=== PATIENT | female | born 1950 | race Caucasian/White ===

== ENCOUNTER 2021-03-10 08:57 | Outpatient (CLI) | payer MEDICARE, SELFPAY ==
--- NOTE | ~2021-03-10 | XR_ITS ---
EXAMINATION: XR shoulder LT min 2V EXAM DATE: 03/10/2021 09:34 INDICATION: M25.512 - Pain in left shoulder. TECHNIQUE: The following left shoulder projections obtained: frontal projection with internal rotatio n, frontal projection with external rotation, Grashey, and axillary (4+ views). Comparison is made to prior examination from 12/28/2016. FINDINGS: No evidence of left shoulder rotator cuff calcific tendinosis. Surgical changes of the acr omioclavicular joint. Anchors from rotator cuff repair. There is mild glenohumeral primary osteoarthr itis. Joint cervical fusion hardware. IMPRESSION: 1. Mild left glenohumeral osteoarthritis. 2. Surgical changes. Reviewed, dictated and finalized at location B.
== END 2021-03-10 08:58 ==
PROVIDERS: PCP Internal Medicine; Visit Provider Internal Medicine
DX: M25.512 Pain in left shoulder (principal); M19.012 Primary osteoarthritis, left shoulder; Z98.890 Other specified postprocedural states
CPT/HCPCS: 73030

== ENCOUNTER 2021-03-29 09:00 | Outpatient (CLI) | payer MEDICARE, SELFPAY ==
--- NOTE | ~2021-03-29 | MR_ITS ---
EXAMINATION: MR shoulder LT wo con DATE: 03/29/2021 11:09 INDICATION: Left shoulder pain TECHNIQUE: Magnetic resonance imaging (MRI) of the left shoulder was performed without intravenous co ntrast. Sequences included axial PD-weighted FS FSE, axial fluid sensitive FSE STIR, coronal oblique PD-weighted FS FSE, coronal oblique T2-weighted FS FSE, coronal fluid sensitive FSE STIR, sagittal PD -weighted FS FSE, and sagittal T1-weighted SE, sagittal fluid sensitive FSE STIR. COMPARISON: Left shoulder radiographs dated 03/10/2021 FINDINGS: Evaluation mild to moderately limited by motion artifact on multiple sequences. Coracoacromial arch: There is thinning of the acromion consistent with prior acromioplasty. There has also been resection of the lateral head of the left clavicle. Rotator cuff: There is a pair of suture anchor screws at the superior facet of the greater tuberosity consistent wi th prior rotator cuff repair. There is severe supraspinatus and moderate infraspinatus tendinopathy. There is attenuation of the distal conjoined portion of the tendon with partial-thickness articular s ided tear. The medial side of the articular sided tear margin is located approximately 2.5 cm medial to the apex of the humeral head and measures approximately 7 mm AP. No full-thickness tear identified . The teres minor tendon is normal. Moderate subscapularis tendinopathy. Mild partial-thickness tear involving the lateral margin of the lesser tuberosity footplate of the subscapularis tendon. Intrasub stance split tear situated between the portion of the tendon attached to the lesser tuberosity and th e bursal side of the tendon which remains attached to the intact transverse humeral ligament. The spl it tear propagates an from the lateral rim of the intertubercular groove additional 8 mm medially. Mi ld to moderate fatty atrophy of the supraspinatus and infraspinatus muscle bellies. Biceps tendon, glenoid labrum and glenohumeral cartilage: Severe tendinopathy and longitudinal split tearing of the intra-articular portion of the long head bi ceps tendon as well as extra-articular portion of the tendon which is subluxed across the medial rim of the intertubercular groove at the subscapularis tear defect. The more distal tendon appears normal . Mild glenohumeral osteoarthritis with partial thickness cartilage loss with smooth appearing chondr al surface at the cephalad third of the glenoid. Glenoid labrum appears grossly normal. Assessment of both the labrum and cartilage is however significantly limited by the motion artifact. Fluid: Small glenohumeral joint effusion. There is a small amount of fluid in the subacromial/subdeltoid bur sa consistent with mild to moderate bursitis. No loose osteochondral bodies. Bones: Bone alignment is normal. No fracture or pathologic marrow replacing process. IMPRESSION: 1. Severe supraspinatus and infraspinatus tendinopathy with change of prior rotator cuff repair at th e superior facet footplate of the supraspinatus tendon. Small residual/recurrent moderate severity ar ticular sided tear involving the posterior supraspinatus tendon contribution to the conjoined portion of the tendon. 2. Moderate subscapularis tendinopathy with small partial-thickness tear involving the lateral margin of the lesser tuberosity footplate allowing partial subluxation of the long head biceps tendon acros s the medial rim of the intertubercular groove. 3. Severe tendinopathy and longitudinal split tearing of the long head biceps tendon. 4. Small glenohumeral joint effusion. 5. Moderate subacromial/subdeltoid bursitis. Reviewed, dictated and finalized at location A.
== END 2021-03-29 09:01 ==
PROVIDERS: PCP Internal Medicine; Visit Provider Internal Medicine
DX: S46.112A Strain of muscle, fascia and tendon of long head of biceps, left arm, initial encounter (principal); M75.51 Bursitis of right shoulder
CPT/HCPCS: 73221

== ENCOUNTER 2023-06-13 15:34 | Emergency (ER) | payer OTHER, SELFPAY ==
--- NOTE | ~2023-06-13 | XR_ITS ---
EXAMINATION: XR knee RT min 4V DATE: 06/13/2023 15:54 INDICATION: Medial right knee pain post twisting injury TECHNIQUE: Anteroposterior, 2 oblique and crosstable lateral views of the right knee were obtained COMPARISON: None. FINDINGS: Alignment is normal. No fracture. Joint spaces appear normal on nonweightbearing imaging. Possible s mall right knee joint effusion without evident layering lipohemarthrosis. Soft tissues are unremarkab le. IMPRESSION: 1. Possible small right knee joint effusion but without evident acute osseous abnormality. Reviewed, dictated and finalized at location A. TING SPECIALIST IMPRESSION: 1. Possible small right knee joint effusion but without evident acute osseous a bnormality.
[2023-06-13 15:34] VITALS: BP 182/92; PULSE 87; RESP 17; TEMP 36.6; O2SAT 99
--- NOTE | 2023-06-13 15:50 | ED.LOWEXIN ---
HPI - Extremity Injury (Lower) General Chief Complaint: Extremity Injury, Lower Stated Complaint: right knee injury Time Seen by Provider: 06/13/23 15:42 Source: patient Mode of arrival: ambulatory Limitations: no limitations History of Present Illness HPI Narrative: patient is a 72-year-old female with a right knee injury at work 4 days ago. She has pain in the right knee medial aspect. She is here for evaluation. complaint: knee injury Onset (ago): day(s) (4) Injury: Right: knee Type of Injury: other ( Twisted knee) Place: work Severity: moderate Severity scale (1-10): 7 Relieving factors: immobilization Exacerbating factors: movement Context: other ( twisted right knee) Associated symptoms: swelling, able to partially bear weight and ambulatory Other symptoms: none Treatments prior to arrival: cold therapy and heart therapy Related Data Allergies Allergy/AdvReac Type Severity Reaction Status Date / Time tramadol Allergy Unknown difficulty Verified 06/13/23 16:08 breathing cefuroxime AdvReac Mild Ringing in Verified 06/13/23 16:08 ears and loose stools Review of Systems Review of Systems: All systems reviewed & are unremarkable except as noted in HPI and below Constitutional: Constitutional: Reports no additional constitutional complaints Eyes: Eyes: Reports no additional eye complaints ENT: Reports system reviewed and no additional complaints, except as documented Cardiovascular: Cardiovascular: Reports no additional cardiovascular complaints Respiratory: Respiratory: Reports no additional respiratory complaints Gastrointestinal: Gastrointestinal: Reports no additional gastrointestinal complaints Genitourinary: Genitourinary: Reports no additional female genitourinary complaints Musculoskeletal: Musculoskeletal: Reports no additional musculoskeletal complaints Integumentary/Breasts: Skin/Breast: Reports system reviewed and no additional complaints, except as docu Neurologic: Reports system reviewed and no additional complaints, except as documented Psychiatric: Psychiatric: Reports no additional psychiatric complaints Endocrine: Endocrine: Reports no additional endocrine complaints Hematologic/Lymphatic: Hematologic/Lymphatic: Reports no additional hematologic/lymphatic complaints Allergic/Immunologic: Allergic/Immunologic: Reports no additional allergic/immunologic complaints PMFSH Past Medical History Medical History Screening for breast cancer Screening for osteoporosis Surgical History Surgical History H/O spinal fusion History of carpal tunnel release History of hysterectomy History of knee replacement History of neck surgery History of revision of total knee arthroplasty History of rotator cuff surgery History of tubal ligation Family History Family History Father Family history of malignant neoplasm Mother Family history of atrial fibrillation Social History Social History Social History: Non Smoker Smoking status: Never smoker Second hand tobacco smoke exposure: Yes Alcohol intake: never Substance use: never Substance use type: does not use Lack of Transportation: No Lack of Food: Never True Current Housing: I Have Housing Concerned About Future Housing: No Difficulty Paying Gas/Electric Bills: No Difficulty Paying for Meds: No Education: High School Diploma/GED Difficulty w/ Childcare or Family Care: No Living arrangements: alone Occupation/Education: retired Gender identity (if verbalized by the patient): Female Sexual Orientation (if Verbalized by the Patient): Straight or Heterosexual Spiritual care concerns: Yes Agree to blood products: No Exam Const: General: healthy appearing Nutr
[2023-06-13 16:34] VITALS: BP 160/79; PULSE 67; RESP 18; TEMP 36.6; O2SAT 99
== END 2023-06-13 16:34 | disposition home or self-care (01) ==
PROVIDERS: Emergency Provider Emergency Medicine; PCP Family Medicine
DX: S83.91XA Sprain of unspecified site of right knee, initial encounter (principal); X50.0XXA Overexertion from strenuous movement or load, initial encounter; Y99.0 Civilian activity done for income or pay
CPT/HCPCS: 73564; 99283

== ENCOUNTER 2023-06-26 07:54 | Outpatient (CLI) | payer OTHER, SELFPAY ==
--- NOTE | ~2023-06-26 | MR_ITS ---
MRI of the right knee Clinical history: Pain Technique: Coronal proton density and proton density-weighted images, sagittal proton-density and T2 fat-sat images, and axial proton-density fat-saturated images were acquired. Findings: Anterior and posterior cruciate ligaments are intact. Medial collateral ligament and the la teral collateral ligament complex are intact. Popliteus tendon is intact. There is a large radial tear at the posterior root of the medial meniscus. There is partial extrusion of the body segment into the medial gutter. Lateral meniscus is intact, without evidence of tear. There is subchondral insufficiency fracture at the medial tibial plateau region with extensive surrou nding marrow edema. There is moderate to high-grade chondral malacia with medial joint line. Lateral compartment cartilage is intact. There is high-grade chondral malacia of the medial patellar facet. T here is moderate chondral malacia the femoral trochlea. Extensor mechanism is intact. There is minimal joint effusion. No Medrano's cyst. Impression: Large radial tear of the posterior root of the medial meniscus. Subchondral insufficiency fracture of the medial tibial plateau with extensive surrounding marrow mara ma. Chondromalacia in the knee, as detailed above. Reviewed, dictated and finalized at location . LSCOPE OPERATOR Impression: Large radial tear of the posterior root of the medial meniscus. Subchondral insufficiency fracture of the medial tibial plateau with extensive surrounding marrow edema. Chondromalacia in the knee, as detailed above.
== END 2023-06-26 07:55 ==
PROVIDERS: PCP Nurse Practitioner Family; Visit Provider Nurse Practitioner Family
DX: S83.241A Other tear of medial meniscus, current injury, right knee, initial encounter (principal); M94.261 Chondromalacia, right knee
CPT/HCPCS: 73721

== ENCOUNTER 2024-03-19 08:51 | Outpatient (CLI) | payer OTHER, SELFPAY ==
--- NOTE | ~2024-03-19 | XR_ITS ---
EXAMINATION: XR knee RT min 4V DATE: 03/19/2024 09:17 INDICATION: Medial left knee pain post fall TECHNIQUE: Anteroposterior, 2 oblique and crosstable lateral views of the right knee were obtained COMPARISON: 06/13/2023 FINDINGS: Alignment is normal. No fracture. Interval progression of now severe joint space narrowing in the me dial compartment with prominent subarticular lucency at the medial tibial plateau. There is been inte rval progression of subarticular likely insufficiency fracture with progressive depression of the cam tral articular surface of the medial tibial plateau when compared with MRI dated 06/26/2023. Unchanged mild osteoarthritis at the patellofemoral compartment. No joint effusion/layering lipohemarthrosis. Soft tissues are unremarkable. IMPRESSION: 1. 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 2. Interval progression in now severe secondary osteoarthritis in the medial compartment. Reviewed, dictated and finalized at location A. IMPRESSION: 1. 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 2. Interval progression in now severe secondary osteoarthritis in the medial co mpartment.
== END 2024-03-19 08:52 | disposition home or self-care (01) ==
PROVIDERS: Visit Provider Nurse Practitioner Family
DX: S82.141D Displaced bicondylar fracture of right tibia, subsequent encounter for closed fracture with routine healing (principal); X58.XXXD Exposure to other specified factors, subsequent encounter; M17.5 Other unilateral secondary osteoarthritis of knee
CPT/HCPCS: 73564

== ENCOUNTER 2024-06-30 15:05 | Outpatient (CLI) | payer MEDICARE, SELFPAY ==
--- NOTE | ~2024-06-30 | CT_ITS ---
EXAMINATION: CT knee RT wo con DATE: 06/30/2024 15:25 INDICATION: Right knee pain. TECHNIQUE: Computed tomography (CT) of the right knee was performed without intravenous contrast. Aut omated exposure control and iterative reconstruction technique were employed. The dose-length product was 626.12 mGy-cm. COMPARISON: Right knee radiographs 06/24/2024, 03/19/24, right knee MRI 06/26/23 FINDINGS: There is varus angulation at the knee. There is a fracture of medial tibial plateau with up to 6 mm depression of the articular surface. There is severe osteoarthritis of medial compartment an d mild osteoarthritis of the lateral and patellofemoral compartments. There is a small knee joint eff usion. IMPRESSION: 1. Medial plateau fracture with worsened depression of the articular surface from 03/19/24. 2. Severe right knee osteoarthritis. 3. Small knee joint effusion. Reviewed, dictated and finalized at location A. STERED MAIL CLERK IMPRESSION: 1. Medial plateau fracture with worsened depression of the articular surface fr om 03/19/24. 2. Severe right knee osteoarthritis. 3. Small knee joint effusion.
== END 2024-06-30 15:06 | disposition home or self-care (01) ==
PROVIDERS: PCP Nurse Practitioner Family; Visit Provider Orthopaedic Surgery
DX: S82.141A Displaced bicondylar fracture of right tibia, initial encounter for closed fracture (principal); X58.XXXA Exposure to other specified factors, initial encounter; M17.11 Unilateral primary osteoarthritis, right knee; M25.461 Effusion, right knee
CPT/HCPCS: 73700

== ENCOUNTER 2024-07-09 14:49 | Outpatient (CLI) | payer MEDICARE, SELFPAY ==
--- NOTE | ~2024-07-09 | DEXA_ITS ---
Bone Density Report Name: DAVID ELIZONDO Age: 74 Sex: Female Ethnicity: White Date of : 1950 Indication: postmenopausal; screening for osteoporosis; height loss; prior fracture; hysterectomy; Referring Provider: MARIA G HATFIELD Study: Bone densitometry was performed. Exam Date: July 09, 2024 Accession number: [id number] Bone Density: Region BMD T-score Z-score Classification AP Spine(L1-L4) 0.867 -1.6 0.6 Osteopenia Femoral Neck (Right) 0.676 -1.6 0.4 Osteopenia Total Hip (Right) 0.805 -1.1 0.5 Osteopenia World Health Organization criteria for BMD impression classify patients as: Normal (T-score at or above -1.0), Osteopenia (T-score between -1.0 and -2.5), or Osteoporosis (T-score at or below -2.5). 10-year Fracture Risk(1): Major Osteoporotic Fracture 16% Hip Fracture 2.4% Reported Risk Factors: [place] (), Neck BMD=0.676, BMI=30.7, previous fracture (1) FRAX(R) Version 3.08. Fracture probability calculated for an untreated patient. Fracture probability may be lower if the patient has received treatment. Clinical Information Provided by Patient: Has had a low trauma fracture Has the following medical conditions: Hysterectomy Patient maximum height was 62 Menopause Age: 47 No regular weight bearing exercise Drinks caffeinated beverages Onset of menses at age 14 Number of children 3 Impression: The patient has low bone mass, based on the Total Spine T-score. The patient has an estimated ten-year risk of hip fracture of 2.4% and an estimated ten-year risk of major fracture of 16%, based on the WHO FRAX algorithm. The patient has risk factors, including: previous fracture. Discussion: BONE DENSITY IS LOW AT ONE OR MORE SKELETAL SITES. This patient's lowest T-score is low at one or more skeletal sites. It meets the World Health Organization's (WHO) criteria for ?low bone mass? (T-score between -1.0 and -2.5). The patient's 10-year risk of fracture as calculated by FRAX is less than the threshold where pharmacological therapy is recommended by the National Osteoporosis Foundation (NOF). However, all treatment decisions require clinical judgment and consideration of individual patient factors, including patient preferences, comorbidities, previous drug use, risk factors not captured in the FRAX model (e.g., frailty, falls, vitamin D deficiency, increased bone turnover, interval significant decline in bone density) and possible under or overestimation of fracture risk by FRAX. The patient should follow a healthful lifestyle (good nutrition with adequate calcium and vitamin D, and appropriate weight-bearing exercise). Follow-Up: Consider repeating this study in 2 to 3 years to reassess this patient's status, or sooner if there is some new clinical indication. Reported by: SOFIA on 07/09/2024 3:39:00 PM. Reviewed, dictated and finalized at location A. [facility]
--- OUTSIDE RECORDS SUMMARY | 2024-07-10 05:50 | XMS_ITS | Referral Summary ---
Author Organization [facility] Address [address] [place] [address] Care Team Providers Care Chief Nursing Officer Name Role Phone Marquis Prater MD Primary Care Provider [phone] Allergies Active Allergy Reactions Criticality Noted Date Comments Tramadol Anaphylaxis High 09/17/2018 Medications lisinopril (PRINIVIL,ZESTR IL) 10 mg tabletIndicatio ns:hypertension Take 1 tablet (10 mg total) by mouth every morning 0 05/14/2018 Active pregabalin (LYRICA) 75 mg capsuleIndicati ons:neuropathy Take 1 capsule (75 mg total) by mouth every morning Active HYDROcodone-cathie taminophen (NORCO) 5-325 mg per tabletIndicatio ns:Pain Take 1 tablet by mouth as needed for pain Active pravastatin (PRAVACHOL) 10 mg tabletIndicatio ns:hyperlipidem ia Take 1 tablet (10 mg total) by mouth every morning 1 02/25/2018 Active aspirin 81 mg enteric coated tabletIndicatio ns:prevention of thrombosis Take 1 tablet (81 mg total) by mouth every morning Active meloxicam (MOBIC) 15 mg tabletIndicatio ns:Osteoarthrit is Take 1 tablet (15 mg total) by mouth every morning 07/20/2023 Active ondansetron (ZOFRAN) 4 mg tablet Take 1 tablet (4 mg total) by mouth every 8 (eight) hours as needed for nausea 12 tablet 10/11/2023 Active docusate sodium (COLACE) 100 mg capsuleIndicati ons:constipatio n Take 1 capsule (100 mg total) by mouth 2 (two) times a day 14 capsule 10/11/2023 Active acetaminophen (TYLENOL) 500 mg tablet Take 1 tablet (500 mg total) by mouth every 6 (six) hours as needed for pain 30 tablet 10/12/2023 Active Active Problems Problem Noted Date Diagnosed Date Acute medial meniscus tear of right knee 024 Degenerative disc disease, cervical 10/30/2018 Cervical radiculopathy 10/30/2018 Foraminal stenosis of cervical region-Lt C3-4 an d C5-6 10/22/2018 Chronic neck and back pain 10/08/2018 Cervical post-laminectomy syndrome-S/P C3-C7 ACI F 10/08/2018 Surgical follow-up care 10/23/2013 Knee pain 03/30/2013 Social History Tobacco Use Types Packs/Day Years Used Date Smoking Tobacco: Never Smokeless Tobacco: Never Alcohol Use Standard Drinks/Week Comments Never 0 (1 standard drink = 0.6 oz pur e alcohol) AUDIT-C Answer Date Recorded Q1: How often do you have a drink containing alcohol? Never 10/11/2023 Q2: How many drinks containi ng alcohol do you have on a typical day when you are drinking? Patient does not drink Q3: How often do you have si x or more drinks on one occasion? Never 10/11/2023 PHQ-2 Answer Date Recorded PHQ-2 Score 2 02/05/2019 Personal Safety Answer Date Recorded Have you ever been in or are you currently in a harmful physical or emotional relationship or is someone making you feel afraid or unsafe? 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 Gender Identity Not on file Sexual Orientation Not on file Occupation Industry Job Start Date Job End Date retired Not on file Not on file Not on file Last Filed Vital Signs Vital Sign Reading Time Taken Comments Blood Pressure 117/59 10/11/2023 9:10 AM CDT Pulse 55 10/11/2023 9:10 AM CDT Temperature 36 ??C (96.8 ??F) 10/11/2023 8:36 AM CDT Respiratory Rate 12 10/11/2023 9:10 AM CDT Oxygen Saturation 98% 10/11/2023 9:10 AM CDT Inhaled Oxygen Concentration - - Weight 68 kg (150 lb) 10/11/2023 6:37 AM CDT Height 154.9 cm (5' 1 ) 10/11/2023 6:37 AM CDT Body Mass Index 28.34 10/11/2023 6:37 AM CDT Plan of Treatment Not on file Goals Goal Patient Goal Type Associated Problems Recent Progress Patient-Stated? Author [facility] Dee Abraham RN Note: Patient will establish a comfort-function goal and identify the pain level that will allow the patient to perform desired activities and achieve an acceptable quality of life. Insurance [facility] MEDICARE SOLUTIONS MEDICARE [facility] WORKERS COMPENSATION GENERIC WORKERS COMPENSATION GENERIC WORKERS COMPENSATION GENERIC Care Teams Chief Nursing Officer Relationship Specialty Start Date End Date Marquis Prater MD [address] [place] [address] PCP - General Family Practice 06/01/24
--- OUTSIDE RECORDS SUMMARY | 2024-07-10 05:50 | XMS_ITS | Clinical Summary ---
Author Organization [facility] Address [address] [place] [address] Care Team Providers Care Radiation Protection Technician Name Role Phone Marquis Prater MD Primary Care Provider [phone] [phone] Allergies Active Allergy Reactions Criticality Noted Date [...] Surgical follow-up care 10/23/2013 Knee pain 03/30/2013 Surgical History Surgery Date Site/Laterality Comments KNEE SURGERY KNEE ARTHROSCOPY JOINT REPLACEMENT Left knees FEMUR FRACTURE SURGERY 2014 - 06/16/2015 Left COLONOSCOPY several ABDOMINAL HYSTERECTOMY CARPAL TUNNEL RELEASE 1989 - 06/16/1990 Bilateral ROTATOR CUFF REPAIR Bilateral Medical History Medical History Date Comments Arthritis Hypertension treated by pcp High cholesterol Neck pain Mid back pain Low back pain Family History Medical History Relation Name Comments Arthritis Father Heart disease Father Hypertension Father Heart disease Mother Relation Name Status Comments Father Mother Social History Tobacco Use Types Packs/Day Years [...] on file 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 Gender Identity Not on file Sexual Orientation Not on file Occupation Industry Job Start Date Job End Date retired Not on file Not on file Not on file Obstetrics History Last Filed Vital Signs Vital Sign Reading [...] 10/11/2023 6:37 AM CDT Plan of Treatment Health Maintenance Due Date Last Done Comments Breast Cancer Screening-Mammogram 1950 Colon Cancer Screening-Colonoscopy 1950 Hepatitis C Screening 1950 Osteoporosis Screening-Bone Density Scan 1950 DTaP/Tdap/Td Vaccine (1 - Tdap) 1963 Hepatitis B Screening 1970 Zoster Vaccine (1 of 2) 2002 Pneumococcal vaccine 65+ (1 of 1 - PCV) 2017 Well Visit 65+ 2017 Depression Screening 10/09/2019 10/08/2018, 10/09/19 19 Covid-19 Vaccine (3 - 2023- season) 02/16/202402/2021, 08/24/2020 Influenza Vaccine (#1) 2024 Fall Risk Assessment 10/10/2024 10/11/2023 Goals Goal Patient Goal Type Associated Problems Recent Progress Patient-Stated? Author [facility] No Dee Mueller, RN Note: Patient will establish a comfort-function goal and identify the pain level that will allow the patient to perform desired activities and achieve an acceptable quality of life. Insurance [facility] MEDICARE SOLUTIONS MEDICARE [facility] WORKERS COMPENSATION GENERIC WORKERS COMPENSATION GENERIC WORKERS COMPENSATION GENERIC Care Teams Radiation Protection Technician Relationship Specialty Start Date End Date Marquis Prater MD [address] [place], [place] [id number] PCP - General Family Practice 06/01/24
== END 2024-07-09 14:50 | disposition home or self-care (01) ==
LOC: ANHIMG 14:51
PROVIDERS: PCP Nurse Practitioner Family; Visit Provider Nurse Practitioner Family
DX: M85.89 Other specified disorders of bone density and structure, multiple sites (principal); Z78.0 Asymptomatic menopausal state; Z13.820 Encounter for screening for osteoporosis
CPT/HCPCS: 77080

== ENCOUNTER 2024-07-09 16:19 | Outpatient (CLI) | payer MEDICARE, SELFPAY ==
[2024-07-09 17:31] LABS: Vitamin D 25 Hydroxy 44.4 ng/mL
== END 2024-07-09 16:20 | disposition home or self-care (01) ==
PROVIDERS: PCP Nurse Practitioner Family; Visit Provider Orthopaedic Surgery
DX: E55.9 Vitamin D deficiency, unspecified (principal)
CPT/HCPCS: 36415; 82306

== ENCOUNTER 2024-09-17 09:24 | Outpatient (CLI) | payer MEDICARE, SELFPAY ==
--- OUTSIDE RECORDS SUMMARY | 2024-09-17 09:53 | XMS_ITS | Referral Summary ---
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 Insurance [facility] HMO/PPO Address: [address] [address] [place] [address] UHC MEDICARE ADV[address]AGE [facility] MEDICARE Address: [address] [address] [place] [address] MEDICARE [facility] WORKERS COMPENSATION GENERIC WORKERS COMPENSATION GENERIC WORKERS COMPENSATION GENERIC Care Teams Reuse Technician Relationship Specialty Start Date End Date Marquis Prater MD [address] [place] [address] PCP - General Family Practice 06/01/24
--- OUTSIDE RECORDS SUMMARY | 2024-09-17 09:53 | XMS_ITS | Clinical Summary ---
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 Author [facility] No Dee Mueller, RN Note: Patient will establish a comfort-function goal and identify the pain level that will allow the patient to perform desired activities and achieve an acceptable quality of life. Insurance [facility] MEDICARE ADVANTAGE MEDICARE [facility] WORKERS COMPENSATION GENERIC WORKERS COMPENSATION GENERIC WORKERS COMPENSATION GENERIC Care Teams Jelly Filter Tender Relationship Specialty Start Date End Date Marquis Prater MD [address] [place], [place] [id number] PCP - General Family Practice 06/01/24
--- NOTE | 2024-09-17 10:17 | ECG_ITS ---
Test Date: 2024-09-17 10:40:59 Measurements Intervals Crawford Rate: 72 P: 12 UT: 159 QRS: -3 QRSD: 91 T: 2 QT: 338 QTc: 371 Interpretive Statements SINUS RHYTHM WITH SINUS ARRHYTHMIA POOR R WAVE PROGRESSION BORDERLINE T WAVE ABNORMALITY- ANTEROLAT/INF LEADS BASELINE ARTIFACT- I, II, III, AVR, AVL, AVF, V1-V6 BORDERLINE ECG No previous ECG available for comparison Electronically Signed On 09-17-2024 10:48:47 CDT by Behzad Jacinto D.O.
[2024-09-17 10:58] LABS: Basophils Percent Auto 0.7 % (0.2-1.2); Eosinophils Absolute Auto 0.1 K/mm3 (0-0.3); Eosinophils Percent Auto 2.2 % (0-4.4); Hematocrit 37.7 % (37.0-47.0); Hemoglobin 11.6 g/dL (12.0-15.0); Immature Granulocyte Absolute 0.01 K/mm3 (0.00-0.031); Immature Granulocyte Percent A 0.2 % (0-0.5); Lymphocytes Absolute Auto 1.23 K/mm3 (0.9-3.2); Lymphocytes Percent Auto 22.2 % (18.3-44.2); Mean Corpuscular HGB Conc 30.8 g/dl (32-36); Mean Corpuscular Volume 91.1 fl (80-100); Mean Platelet Volume 11.8 fl (7.4-10.4); Monocytes Absolute Auto 0.3 K/mm3 (0.1-0.6); Monocytes Percent Auto 5.1 % (2.6-8.5); Neutrophils Absolute Auto 3.9 K/mm3 (1.3-6.7); Neutrophils Percent Auto 69.6 % (45.5-73.1); Platelet Count Result 245 k/mm3 (150-375); Red Blood Count 4.14 M/mm3 (4.2-5.4); Red Cell Distribution Width 13.9 % (11.5-14.5); White Blood Count 5.5 K/mm3 (4.5-10.0)
[2024-09-17 11:12] LABS: Anion Gap 10 mmol/L (4-12); Blood Urea Nitrogen 10 mg/dL (7-17); Calcium 9.3 mg/dL (8.4-10.2); Carbon Dioxide 30 mmol/L (22-30); Chloride 102 mmol/L (98-107); Estimated Glomerular Filt Rate 56; Glucose 105 mg/dL (65-110); Potassium 4.3 mmol/L (3.4-5.0); Sodium 142 mmol/L (137-145)
[2024-09-17 11:41] LABS: Hemoglobin A1C 5.4 % (<5.7)
[2024-09-17 12:25] LABS: Urine Cotinine NEGATIVE
[2024-09-17 12:42] LABS: Albumin Level 4.5 g/dL (3.5-5.1)
== END 2024-09-17 09:25 | disposition home or self-care (01) ==
LOC: ANHSURGERY 09:30
PROVIDERS: PCP Nurse Practitioner Family; Visit Provider Orthopaedic Surgery
DX: Z01.818 Encounter for other preprocedural examination (principal); M17.11 Unilateral primary osteoarthritis, right knee; R94.31 Abnormal electrocardiogram [ECG] [EKG]
CPT/HCPCS: 80048; 80307; 82040; 83036; 85025; 87081; 93005

== ENCOUNTER 2024-10-08 01:07 | Day surgery (SDC) | payer MEDICARE, SELFPAY ==
--- NOTE | 2024-09-17 09:32 | PC.NURSE ---
Report to the Outpatient Waiting Room, entrance under the green pavilion located off [facility], at time ___6:00am____ on date ___10/08/24____. Planned Procedure Time: ___7:30am .? Time changes happen often and if your time is changed the preop area will call you the afternoon before. - You and your visitor will be asked to self-screen and do not enter if you have any COVID symptoms. Please call surgeon if you need to reschedule. - A mask is optional within the hospital at this time. Patients may have clear liquids (water, carbonated beverages, clear teas, apple juice) until 3 hours prior to surgery (4:30AM) with a maximum of 20 ounces. - No food from midnight until time of surgery and no smoking, or chewing tobacco (or any form of nicotine). No chewing gum, candy or mints. Take only the following medications with a SIP of water on the morning of surgery: ___HYDROCODONE, PREGABALIN NEEDED FOR PAIN DO NOT STOP ANY OF YOUR OTHER PRESCRIPTION MEDICATIONS PRIOR TO SURGERY EXCEPT THE FOLLOWING Hold all vitamins and supplements for 3 days per anesthesiologist. Medications to discontinue per physician HOLD MELOXICAM(NSAIDS) 7 DAYS PRE-OP PER DR ALLAN Date to take last dose 09/30/24 Please no make-up, nail portuguese, hairspray, perfume, deodorant, or body powder the day of surgery.? No jewelry (including any body piercings) or valuables the day of surgery, leave them at home.? Please take a shower or bath the night before, or the morning of, surgery with an antibacterial soap.? Wear comfortable, loose fitting clothing.? - Jewelry must be removed prior to entering the operating room.? Rings and piercings that are not removed may be cut off. - The hospital will not accept responsibility for valuables.? - Please leave all valuables, including medications, at home the day of surgery. If you are going home after surgery, a licensed set key driver must drive you home.? - NO public transportation without another adult if you receive anesthesia. - We recommend that an adult stay with you for 24 hours following discharge. - We also recommend that you do not drive, make important decision, drink alcoholic beverages, or take any drugs that were not prescribed by your health care provider for at least 24 hours after your discharge time. Follow any additional instructions given to you from your surgeon. Telephone instructions given to PATIENT and asked if any additional questions and then verbalized understanding. Patient advised to call surgeon office or pre surgery nurse liaison [phone] if any additional questions.
[2024-09-17 09:44] VITALS: BP 144/62; PULSE 77; RESP 16; TEMP 36.7; O2SAT 100; BMI 33.2
--- NOTE | 2024-10-07 12:31 | P.HP_ITS ---
H&P: HPI History of Present Illness Date/Time: 10/07/24 12:31 Chief Complaint: Right knee DJD Narrative: 74-year-old female who presents today for a right total knee arthroplasty. Patient has been having progressively worsening symptoms in the knee for over a year. At this point she has advanced medial compartment osteoarthritis. She is having some impaction type fracture of the medial tibial plateau. Patient has been taking meloxicam 15 mg daily. She is also needing hydrocodone 10 mg on as- needed basis for her pain. Patient states her pain is severe on a daily basis. She would like to proceed at this point with total knee arthroplasty. Review of Systems Review of Systems: All systems reviewed & are unremarkable except as noted in HPI and below PMFSH Past Medical History Medical History Screening for breast cancer Screening for osteoporosis Surgical History Surgical History H/O spinal fusion History of rotator cuff surgery History of revision of total knee arthroplasty History of knee replacement History of hysterectomy History of carpal tunnel release History of neck surgery History of tubal ligation Family History Family History Father Family history of malignant neoplasm Mother Family history of atrial fibrillation Other History of atrial fibrillation Social History Social History (Updated 07/08/24 @ 11:22 by Antoinette Pringle CMA) Social History: Non Smoker Smoking status: Never smoker Second hand tobacco smoke exposure: Yes Alcohol intake: never Substance use: never Substance use type: does not use Do You Feel Safe in your Home?: Yes Lack of Transportation: No Lack of Food: Never True Current Housing: I Have Housing Concerned About Future Housing: No Difficulty Paying Gas/Electric Bills: No Difficulty Paying for Meds: No Currently Unemployed: No Education: Associate Degree Difficulty w/ Childcare or Family Care: No Living arrangements: with family Additional living arrangements comments: [employer] Occupation/Education: retired Gender identity (if verbalized by the patient): Female Sexual Orientation (if Verbalized by the Patient): Straight or Heterosexual Spiritual care concerns: No Agree to blood products: No Meds Home Medications and Allergies Home Medications ?Medication ?Instructions ?Recorded ?Confirmed ?Type lisinopril 10 mg tablet See Rx Instructions .Route 06/03/24 09/21/24 Rx .COMPLEX #90 tabs pravastatin 10 mg tablet See Rx Instructions .Route 06/03/24 09/21/24 Rx .COMPLEX #90 tabs pregabalin 75 mg capsule (Lyrica) 75 mg PO BID #180 caps 06/03/24 09/21/24 Rx hydrocodone 10 mg-acetaminophen 0.5 tablet PO Q6H PRN pain #60 tabs 09/30/24 Rx 325 mg tablet meloxicam 15 mg tablet See Rx Instructions .Route 09/30/24 Rx .COMPLEX #30 tabs Allergies Allergy/AdvReac Type Severity Reaction Status Date / Time cefuroxime AdvReac Mild Ringing in Verified 09/21/24 12:08 ears and loose stools tramadol AdvReac Unknown difficulty Verified 09/21/24 12:08 breathing Exam Narrative: 74-year-old female alert pleasant. She is 4 ft 11 and 156 lb BMI is 30.5. Range of motion right knee is from 0-125 degrees. Moderate tenderness over the medial joint line to palpation. She has moderate medial pseudolaxity. No obvious effusion. He has no increased swelling in either lower extremity. 2+ dorsalis pedis pulse palpable. Hip range of motion is full without discomfort, negative Stinchfield maneuver. She has normal quad strength. No numbness or tingling in the right lower extremity Resp: Auscultation: clear to auscultation bilaterally Cardio: Rate: regular rate Rhythm: regular rhythm Assessment and Plan Assessment and plan (1) Right knee DJD: Code(s): M17.11 - Unilateral primary osteoarthritis, right knee Status: Acute Assessment and Plan: 74-year-old female who has advanced medial compartment osteoarthritis the right knee. She has had impaction fractures of medial tibial plateau. This point she is having severe pain on a daily basis and feels she would rather proceed with total knee arthroplasty at this point. Surgical procedures well as risks and complications were discussed in detail questions were answered and we will proceed. Patient has seen her primary care doctor and has been cleared for surgery. She will stop her baby aspirin as well as her meloxicam 1 week prior to surgery. Patient's nasal swab was negative. Hemoglobin 11.6 and platelets 248. Chem panel her creatinine was 0.98 GFR was 56. Rest of Chem panel was within normal limits.
[2024-10-08] VITALS (15 sets, daily range): BP systolic 109–141; BP diastolic 49–77; PULSE 68–84; RESP 14–20; TEMP 35.9–37.2; O2SAT 94–100
--- NOTE | ~2024-10-08 | XR_ITS ---
Right Knee Technique: Portable AP and crosstable lateral views Clinical History: Status post TKR Findings: Patient is status post total knee replacement. Orthopedic hardware alignment appears anatom ic. No hardware complication is evident. Subcutaneous emphysema and swelling is likely postoperative in nature. No acute osseous fracture is seen. Impression: Status post total knee replacement, without evidence of hardware complication. Reviewed, dictated and finalized at location . Impression: Status post total knee replacement, without evidence of hardware complication.
--- OUTSIDE RECORDS SUMMARY | 2024-10-08 01:10 | XMS_ITS | Referral Summary ---
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 Insurance [facility] H[facility]/PPO Address: [address] [address] [place] [address] UHC MEDICARE ADVANT[facility]IC[facility] Address: [address] [address] [place] [address] MEDICARE [facility] WORKERS COMPENSATION GENERIC WORKERS COMPENSATION GENERIC WORKERS COMPENSATION GENERIC Care Teams Peanut Blancher Relationship Specialty Start Date End Date Marquis Prater MD [address] [place] [address] PCP - General Family Practice 06/01/24
--- OUTSIDE RECORDS SUMMARY | 2024-10-08 01:10 | XMS_ITS | Clinical Summary ---
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 Insurance [facility] MEDICARE ADVANTAGE MEDICARE [facility] COMPENSATION GENERIC WORKERS COMPENSATION GENERIC WORKERS COMPENSATION GENERIC Care Teams Hot Dip Tinning Supervisor Relationship Specialty Start Date End Date Marquis Prater MD [address] [place], [place] [id number] PCP - General Family Practice 06/01/24
--- NOTE | 2024-10-08 06:45 | WPDANESEPPF ---
Anes - Initial Pre Proc Eval Procedure: Operation Date: 10/08/24 07:30 Proposed Procedures p Right Total Knee Arthroplasty - Richard Hunt MD Date/Time: 10/08/24 06:45 Surgeon: Richard Hunt MD Pre Op Diagnosis: right knee OA Patient Data Age: 74 Gender: F Height: 1.45 m Weight: 69.7 kg Last Vital Signs Temp 36.7 C 09/17/24 09:44 Pulse 77 09/17/24 09:44 Resp 16 09/17/24 09:44 BP 144/62 H 09/17/24 09:44 Pulse Ox 100 09/17/24 09:44 O2 Del Method Room Air 09/17/24 09:44 Allergies Allergy/AdvReac Type Severity Reaction Status Date / Time cefuroxime AdvReac Mild Ringing in Verified 09/21/24 12:08 ears and loose stools tramadol AdvReac Unknown difficulty Verified 09/21/24 12:08 breathing Home Medications ?Medication ?Instructions ?Recorded ?Confirmed ?Type lisinopril 10 mg tablet See Rx Instructions .Route 06/03/24 09/21/24 Rx .COMPLEX #90 tabs pravastatin 10 mg tablet See Rx Instructions .Route 06/03/24 09/21/24 Rx .COMPLEX #90 tabs pregabalin 75 mg capsule (Lyrica) 75 mg PO BID #180 caps 06/03/24 09/21/24 Rx hydrocodone 10 mg-acetaminophen 0.5 tablet PO Q6H PRN pain #60 tabs 09/30/24 Rx 325 mg tablet meloxicam 15 mg tablet See Rx Instructions .Route 09/30/24 Rx .COMPLEX #30 tabs Laboratory Tests 10/08/24 06:32 Blood Type Pending Antibody Screen Pending Patient hx anesthesia problems: none Family hx anesthesia problems: none Results Review: All pre-operative results and documents have been reviewed as part of the pre-operative evaluation. [facility] Past Medical History Medical History Screening for breast cancer Screening for osteoporosis Surgical History Surgical History H/O spinal fusion History of rotator cuff surgery History of revision of total knee arthroplasty History of knee replacement History of hysterectomy History of carpal tunnel release History of neck surgery History of tubal ligation Family History Family History Father Family history of malignant neoplasm Mother Family history of atrial fibrillation Other History of atrial fibrillation Social History Social History Social History: Non Smoker Smoking status: Never smoker Second hand tobacco smoke exposure: Yes Alcohol intake: never Substance use: never Substance use type: does not use Do You Feel Safe in your Home?: Yes Lack of Transportation: No Lack of Food: Never True Current Housing: I Have Housing Concerned About Future Housing: No Difficulty Paying Gas/Electric Bills: No Difficulty Paying for Meds: No Currently Unemployed: No Education: Associate Degree Difficulty w/ Childcare or Family Care: No Living arrangements: alone Additional living arrangements comments: [employer] Occupation/Education: retired Gender identity (if verbalized by the patient): Female Sexual Orientation (if Verbalized by the Patient): Straight or Heterosexual Spiritual care concerns: Yes Agree to blood products: No Anes - Eval Final PreProcedure Day of Procedure 10/08/24 06:45 Patient weight: obese Heart: regular rate and rhythm Lungs: clear to auscultation Airway: Mallampati scale class II and special considerations poor dentition Neurological: alert and oriented Last oral intake: >/= 8 hours ASA classification: III Emergent: no Anesthetic plan: proceed Anesthesia type and monitoring: general ETT and standard monitoring Results Review: All pre-operative results and documents have been reviewed as part of the pre-operative evaluation. Informed Consent: The patient's anesthetic plan and its attendant risks and benefits were discussed with the patient/family/POA. Questions were solicited and answers provided to the satisfaction of the patient/family/POA.
[2024-10-08] MEDS: VANCOMYCIN 1,000 MG/NS 250 ML 1,000 MG/250 ML BAG 250 MG IVPB ×2 (07:00→19:34)
[2024-10-08] MEDS: LACTATED RINGERS 1,000 ML 30 ML IV CONT ×2 (07:00→11:20)
[2024-10-08] MEDS: ACETAMINOPHEN 500 MG TABLET 1000 MG PO (07:00)
[2024-10-08] MEDS: TRANEXAMIC ACID 1,000MG/ISO100 1,000 MG/100 ML BAG 200 MG IVPB (07:00)
--- NOTE | 2024-10-08 07:15 | WPDHPUPDATE1 ---
History and Physical Update Update Date/Time: 10/08/24 07:15 History and Physical has been reviewed, including an updated exam of the patient. There are NO changes in the patient's condition. Risks, benefits, and alternatives have been discussed and questions answered. Patient agrees to proceed with procedure.
[2024-10-08] MEDS: SODIUM CHLORIDE 0.9% IV 38.7 ML, ROPivacaine HCL 1% 200 MG, KETOROLAC INJ (*BKC) 15 MG,... INFILTRATE (07:35)
[2024-10-08] MEDS: ceFAZolin 2 GM/D5W 50 ML 2 GM/50 ML BAG IVPB ×3 (07:35→22:08)
[2024-10-08] MEDS: ceFAZolin SODIUM 1 GM VIAL 3 GM (07:35)
[2024-10-08] MEDS: GENTAMICIN BONE CEMENT REFOBACIN 1 EACH TOPICAL (10:05)
[2024-10-08] MEDS: TRANEXAMIC ACID 1,000 MG/10 ML AMPUL 1000 MG IV PUSH (10:20)
[2024-10-08] MEDS: ceFAZolin SODIUM 1 GM VIAL 2 GM IV PUSH (10:20)
[2024-10-08] MEDS: KETOROLAC 15 MG/ML VIAL (*BKC) 7.5 MG IV PUSH ×2 (10:43→17:22)
--- NOTE | 2024-10-08 11:31 | PM.OP ---
Procedure Note - Brief Procedure Note - Brief Date of procedure: 10/08/24 right knee OA Procedure performed: Right total knee arthroplasty Surgeon: HAY Acevedo Findings: 74 year old who underwent right total knee arthroplasty on 10/08. I was involved in the procedure including positioning the patient on the OR table in 1st assisting through the time surgery. Total time spent was 3-1/2 hours
--- NOTE | 2024-10-08 14:50 | PCPTNOTE ---
Patient declining therapy at this time due to significant nausea- 1450. RN aware.
[2024-10-08] MEDS: SODIUM CHLORIDE 0.9% IV 1,000 ML 125 ML IV CONT (14:52)
[2024-10-08] MEDS: ONDANSETRON INJ 4 MG/2 ML VIAL IV PUSH (14:57)
--- NOTE | 2024-10-08 16:32 | P.OP_ITS ---
Procedure Note - Detailed Date of Procedure 10/08/24 Pre-op Diagnosis right knee OA, central depression insufficiency fracture medial tibial plateau Post-op Diagnosis Same Procedure Performed Right total knee arthroplasty with 80 mm cemented tibial intramedullary stem Surgeon Richard Hunt MD Sales Performance Manager Zo Anesthesia General Description of Procedure Patient was brought to the operating room and general anesthesia was administered. She received 2 g of Ancef weight based vancomycin 1 g of TXA preoperatively. Under anesthesia the knee came out to full extension there was moderate medial pseudolaxity. The right leg was prepped draped usual fashion. Limb was exsanguinated tourniquet elevated to 300 mmHg. A 7 in longitudinal midline incision was used and a standard parapatellar arthrotomy utilized. Partial excision of infrapatellar fat pad was performed. Quadriceps synovectomy carried out. Suprapatellar fat pad excised. The patella had moderate chondromalacia over the medial facet no hypertrophic changes and I felt it was very appropriate for non resurfacing. A minimal lateral facetectomy was performed. Next a guide veto was inserted on femoral canal after aspiration of canal contents using the 5 degree valgus cutting bushing, 9 mm of bone removed the distal femur. The guide sat on a medial ridge of the medial femoral condyle and not on the surface of deeper where so this removed about 6 or 7 mm laterally. Next the tibial plateau was cut. Cut was made perpendicular to the axis of the tibia. This removed of 8.5 mm from lateral side. Meniscal remnants were excised the PCL was recessed. This cut left a persistent defect at the medial margin of the mid medial tibial plateau. There is intact anteromedial and posteromedial margin bone but a defect centrally where she had the depressed insufficiency fracture. Loose fragments articular cartilage were removed. It appeared that there was bony resorption of the fragments centrally. There was a displaced marginal fragment attached to the medial collateral ligament deep capsule which we pared down avoiding cause any defect in the medial capsule leaving a thin shell of bone on the capsule for protection. Flexion gap measured 8 mm medially and 12 mm laterally. Femoral sizing guide was applied t he distal femur set at 5? of external rotation which matched Whitesides line. Posterior referencing pinholes were placed. We applied the size 60 AP cutting block and this was going to notch. She did have a little bit of a posterior curvature to the distal femoral metaphysis. We applied the 62.5 in made the anterior cut and this was going to be too wide. Therefore 3 or 4? of flexion was placed on the distal femoral cut and we reapplied the size 60 AP guide which gave a flush cut with the anterior cortex without notching. Posterior and chamfer cuts were made. The size 60 trial fit line to line medial to lateral. The tibia was sized to a size 63 which fit line to line posterolateral to anteromedial at proper rotation This only overhung the defect by about 4 mm and again there was bony support anteromedial and and posteromedial under the tray. This was punched but I could tell the 10 mm intramedullary stem part of the punch was impinging on the lateral cortex of the tibial shaft therefore we had to introduce about a 1 degree of valgus the tibial cut and this allowed the punch and subsequently the trial tray with 80 mm fin stem attached to seat fully. We trialed with 10 mm insert and at 90? of flexion there was excellent stability anterior posterior drawer as in all positions. [place] flexion was to 125. The knee had a barely positive bounce in extension lacking only 1 or 2? and there was 2-3 mm of medial opening 2 mm lateral opening. Posterior femoral condylar bone protruding proximal to the posterior condyles the trial implant was removed and a conservative posterior central capsular release was carried out from the distal femur and on read trialing this time the knee came out to full extension with 1 mm lateral opening 2 mm medial opening negative bounce and with the arthrotomy towel clip still negative bounce. Patellar tracking was close but not quite perfect. We did put the tourniquet down earlier at 90 minutes at this time the limb was exsanguinated tourniquet elevated again to 300 mmHg. We carefully curetted the cartilage like fibrous tissue at the base of the medial tibial plateau marginal defect and used a step drill to make multiple perforations in the tibial plateau and the distal femur. The bone density in the surface of the bones was normal. The bony surfaces were thoroughly irrigated and dried. Using 2 batches of methylmethacrylate 1 the gentamicin powder the cement was a applied to the size 63 vanguard tibial tray modular with the 80 mm finned stem attached cement applied the size 60 right CR femoral component cement applied the tibial plateau pressurized in the canal tibial component fully seated. Cement applied to the femur and the femoral component fully see the brought into extension with 11 mm 5 1 insert for cement pressurization. Tourniquet was released total tourniquet time 110 minutes. After cement hardening excess cement was sought for removed hemostasis was achieved. We trialed the 10 insert which had same stability findings as above. Patellar tracking was not perfect until we performed a lateral retinacular release to the level of the superior pole of patella which then gave perfect patellar tracking. The 10 mm insert was placed without difficulty locked the locking pin range of motion stability reconfirmed. Local anesthetic cocktail was injected in the periarticular soft tissues. Arthrotomy was closed with 2. Vicryl was then 1. Unidirectional barbed Stratafix suture. At this point there was negative bounce in full extension and gravity flexion 125. Skin closed with 2 subcu Vicryl 3-0 subcuticular Monocryl and glue EBL was 250 cc. No complications. SAMAN Mcnulty Surgery - Charge Forward: Surgery [place] (Right total knee arthroplasty)
--- NOTE | 2024-10-08 17:02 | P.CONIM_ITS ---
Assessment and Plan Assessment and plan (1) Degenerative joint disease of right knee: Code(s): M17.11 - Unilateral primary osteoarthritis, right knee Status: Acute Assessment and Plan: Postoperative day 0 status post right total knee arthroplasty. Wound care, pain control, and DVT prophylaxis deferred to primary service. PT/OT consulted. (2) Hypertension: Code(s): I10 - Essential (primary) hypertension Status: Acute Assessment and Plan: Blood pressures were reviewed and they have been running in the 140 systolic postoperatively. Resume lisinopril 10 mg tomorrow and continue to monitor closely. (3) Hyperlipidemia: Code(s): E78.5 - Hyperlipidemia, unspecified Status: Acute Assessment and Plan: Continue pravastatin and check LFTs in a.m. (4) Peripheral neuropathy: Code(s): G62.9 - Polyneuropathy, unspecified Status: Acute Assessment and Plan: Continue pregabalin 75 mg b.i.d.. Plan Thank you for allowing us to participate in this patient's care. Please do not hesitate to contact us with any questions. HPI Date of Consult Consult date: 10/08/24 Requesting Physician: Richard Hunt MD Consult Narrative Reason for consult: Medical management. Narrative: This is a very pleasant 74-year-old female with degenerative joint disease, peripheral neuropathy, hypertension, hyperlipidemia, and a transient episode of atrial fibrillation during a previous surgery whom the hospitalist service has been consulted for help managing her medical conditions postoperatively. She presented today for elective right total knee arthroplasty due to ongoing pain despite conservative outpatient treatment. Surgery was performed under general anesthesia with no immediate complications documented an estimated blood loss of 250 mL. She believes that she got a regional block and she has had minimal discomfort which has been manageable with acetaminophen. She has been up to the chair into the bathroom with a walker without issue. She had some nausea earlier on but that has since passed and she was able to eat dinner. No fever, chills, sweats, chest pain, shortness of breath, or vomiting. She also denies paresthesias, skin color, and temperature changes distal to the surgical site. Regarding her chronic medical conditions, she reports that they are well contro lled on home medication. On discharge she will be going home and her will be helping take care of her. No personal or family history of venous thromboembolism. Review of Systems Review of Systems: 12 systems were reviewed and are negativ e except for as per HPI. [facility] Past Medical History Medical History (Updated 10/08/24 @ 17:07 by Nika Mina PA-C) Arthritis Peripheral neuropathy Post-menopausal Osteopenia Multinodular goiter Hyperlipidemia Hypertension Transient atrial fibrillation at the time of left knee replacement Surgical History Surgical History (Updated 10/08/24 @ 17:05 by Nika Mina PA-C) History of arthroplasty of right knee (10/08/24) History of arthroplasty of left knee with revision History of spinal fusion History of rotator cuff surgery History of hysterectomy History of carpal tunnel release History of neck surgery History of tubal ligation Family History Family History Father Family history of malignant neoplasm Mother Family history of atrial fibrillation Other History of atrial fibrillation Social History Social History (Updated 10/08/24 @ 17:07 by Nika Mina PA-C) Social History: Surrogate medical decision maker: Mitchell Perdomo, spouse. Code status: Full code. Smoking status: Never smoker Second hand tobacco smoke exposure: Yes Alcohol intake: never Substance use: never Substance use type: does not use Do You Feel Safe in your Home?: Yes Lack of Transportation: No Lack of Food: Never True Current Housing: I Have Housing Concerned About Future Housing: No Difficulty Paying Gas/Electric Bills: No Difficulty Paying for Meds: No Currently Unemployed: No Education: Associate Degree Difficulty w/ Childcare or Family Care: No Living arrangements: with family Occupation/Education: retired Spiritual care concerns: No Agree to blood products: No Meds Home Medications and Allergies Home Medications ?Medication ?Instructions ?Recorded ?Confirmed ?Type lisinopril 10 mg tablet See Rx Instructions .Route 06/03/24 09/21/24 Rx .COMPLEX #90 tabs pravastatin 10 mg tablet See Rx Instructions .Route 06/03/24 09/21/24 Rx .COMPLEX #90 tabs pregabalin 75 mg capsule (Lyrica) 75 mg PO BID #180 caps 06/03/24 09/21/24 Rx hydrocodone 10 mg-acetaminophen 0.5 tablet PO Q6H PRN pain #60 tabs 09/30/24 Rx 325 mg tablet meloxicam 15 mg tablet See Rx Instructions .Route 09/30/24 10/08/24 Rx .COMPLEX #30 tabs Allergies Allergy/AdvReac Type Severity Reaction Status Date / Time cefuroxime AdvReac Mild Ringing in Verified 10/08/24 07:17 ears and loose stools tramadol AdvReac Unknown difficulty Verified 10/08/24 07:17 breathing Vital Signs Vital Signs - 24 hr 10/08/24 07:00 10/08/24 11:20 10/08/24 11:35 Temperature 97.6 F 98.9 F Pulse Rate 80 81 75 Respiratory Rate 14 14 19 Blood Pressure 109/72 115/51 L 110/53 L Pulse Oximetry 100 99 99 Oxygen Delivery Room Air Simple Face Mask Simple Face Mask Oxygen Flow Rate 10 10 10/08/24 11:50 10/08/24 12:05 10/08/24 12:20 Temperature Pulse Rate 78 84 74 Respiratory Rate 16 15 17 Blood Pressure 118/61 128/62 125/77 Pulse Oximetry 99 94 98 Oxygen Delivery Simple Face Mask Room Air Room Air Oxygen Flow Rate 10 10/08/24 12:35 10/08/24 12:50 10/08/24 13:05 Temperature Pulse Rate 73 82 83 Respiratory Rate 20 18 15 Blood Pressure 122/62 126/56 L 134/64 Pulse Oximetry 98 98 98 Oxygen Delivery Nasal Cannula Nasal Cannula Nasal Cannula Oxygen Flow Rate 2 2 2 10/08/24 13:25 10/08/24 13:40 10/08/24 14:10 Temperature 97.0 F L Pulse Rate 73 74 76 Respiratory Rate 14 14 14 Blood Pressure 141/63 H 141/62 H 140/58 L Pulse Oximetry 97 100 100 Oxygen Delivery Oxygen Flow Rate 10/08/24 15:10 Temperature 96.7 F L Pulse Rate 68 Respiratory Rate 14 Blood Pressure 141/49 H Pulse Oximetry 100 Oxygen Delivery Oxygen Flow Rate Exam Narrative: General: Well-developed, nontoxic-appearing female sitting up in bed. She is in good spirits. Weight: 69 kg. BMI: 32.9. HEENT: Wearing corrective lenses. PERRL, EOMI. Sclera anicteric. Oral mucosa moist. Neck: Supple. Respiratory: Lungs are clear to auscultation bilaterally. Cardiovascular: Regular rate and rhythm with S1-S2. Gastrointestinal: Abdomen is soft, nontender, and nondistended with positive bowel sounds. Skin: Warm and dry. No rash or lesions on limited exam. Extremities: No cyanosis, clubbing, or edema. Radial and pedal pulses intact. Musculoskeletal: Right knee dressing is clean, dry, and intact. She is neurovascularly intact distal to the surgical site. Neurological: Alert. Cranial nerves 2-12 grossly intact. No gross focal deficits to casual conversation. Psychiatric: Pleasant and cooperative with normal mood and affect. Judgment and insight intact. Hospitalist MIPS Advance Care Plan I have confirmed that the patient's Advanced Care Plan is present, code status is documented, or surrogate decision maker is listed in patient medical record.: Yes Medication Reconciliation I have utilized all available resources to obtain, update and review the patients current medications (includes all prescriptions, OTC, herbals, cannabis, and nutritional supplements).: Yes
[2024-10-08] MEDS: SENNA/DOCUSATE SODIUM TABLET 2 TAB PO (17:23)
[2024-10-08] MEDS: PREGABALIN (*CRX) 75 MG CAPSULE PO (17:24)
[2024-10-08] MEDS: ACETAMINOPHEN 325 MG TABLET 650 MG PO ×2 (17:25→20:24)
[2024-10-08] MEDS: FAMOTIDINE 20 MG TABLET PO (20:24)
[2024-10-09 02:52] VITALS: BP 132/59; PULSE 90; RESP 16; TEMP 36.1; O2SAT 95
--- NOTE | 2024-10-09 04:10 | PC.NURSE ---
Pt states she does not want any other pain medication besides tylonol stating I don't like the way it makes me feel.
[2024-10-09] MEDS: ACETAMINOPHEN 325 MG TABLET 650 MG PO ×2 (05:13→08:38)
[2024-10-09] MEDS: ceFAZolin 2 GM/D5W 50 ML 2 GM/50 ML BAG IVPB (06:06)
[2024-10-09 06:23] LABS: Basophils Percent Auto 0.2 % (0.2-1.2); Hematocrit 30.4 % (37.0-47.0); Hemoglobin 9.3 g/dL (12.0-15.0); Immature Granulocyte Percent A 0.8 % (0-0.5); Lymphocytes Absolute Auto 0.62 K/mm3 (0.9-3.2); Lymphocytes Percent Auto 4.9 % (18.3-44.2); Mean Corpuscular HGB Conc 30.6 g/dl (32-36); Mean Corpuscular Hemoglobin 28.4 pg (26-34); Mean Corpuscular Volume 92.7 fl (80-100); Mean Platelet Volume 11.9 fl (7.4-10.4); Monocytes Absolute Auto 0.6 K/mm3 (0.1-0.6); Monocytes Percent Auto 4.5 % (2.6-8.5); Neutrophils Absolute Auto 11.5 K/mm3 (1.3-6.7); Neutrophils Percent Auto 89.6 % (45.5-73.1); Platelet Count Result 204 k/mm3 (150-375); Red Blood Count 3.28 M/mm3 (4.2-5.4); White Blood Count 12.8 K/mm3 (4.5-10.0)
[2024-10-09 06:31] LABS: Alanine Aminotransferase 11 U/L (6-35); Albumin Level 3.7 g/dL (3.5-5.1); Alkaline Phosphatase 83 U/L (38-126); Anion Gap 9 mmol/L (4-12); Aspartate Amino Transferase 23 U/L (14-36); Bilirubin,Total 0.3 mg/dL (0.2-1.3); Blood Urea Nitrogen 16 mg/dL (7-17); Calcium 8.8 mg/dL (8.4-10.2); Carbon Dioxide 25 mmol/L (22-30); Chloride 103 mmol/L (98-107); Estimated Glomerular Filt Rate 48; Glucose 124 mg/dL (65-110); Magnesium 1.9 mg/dL (1.6-2.3); Potassium 4.7 mmol/L (3.4-5.0); Sodium 137 mmol/L (137-145)
[2024-10-09] MEDS: VANCOMYCIN 1,000 MG/NS 250 ML 1,000 MG/250 ML BAG 250 MG IVPB (06:32)
--- NOTE | 2024-10-09 07:34 | PM.PNORT ---
Subjective Subjective Date/Time Seen: 10/09/24 07:34 Interval history: Postop day 1 patient is alert. She is afebrile vital signs are stable. Dressing is dry and intact. She did have some mild nausea yesterday after anesthesia no emesis. She did he did her last night. She was up walking yesterday with therapy is very comfortable. Overall pain is well controlled. She is only wanting to take Tylenol for pain and it is working. Morning labs are noted. Patient will be started on Eliquis this morning. Will plan have the patient work with therapy this morning and if she continues to be doing well she will be discharged home later this morning. Objective Data Vital Signs Vital Signs: Vital Signs - 24 hr 10/08/24 11:20 10/08/24 11:35 10/08/24 11:50 Temperature 98.9 F Pulse Rate 81 75 78 Respiratory Rate 14 19 16 Blood Pressure 115/51 L 110/53 L 118/61 Pulse Oximetry 99 99 99 Oxygen Delivery Simple Face Mask Simple Face Mask Simple Face Mask Oxygen Flow Rate 10 10 10 10/08/24 12:05 10/08/24 12:20 10/08/24 12:35 Temperature Pulse Rate 84 74 73 Respiratory Rate 15 17 20 Blood Pressure 128/62 125/77 122/62 Pulse Oximetry 94 98 98 Oxygen Delivery Room Air Room Air Nasal Cannula Oxygen Flow Rate 2 10/08/24 12:50 10/08/24 13:05 10/08/24 13:25 Temperature Pulse Rate 82 83 73 Respiratory Rate 18 15 14 Blood Pressure 126/56 L 134/64 141/63 H Pulse Oximetry 98 98 97 Oxygen Delivery Nasal Cannula Nasal Cannula Oxygen Flow Rate 2 2 10/08/24 13:40 10/08/24 14:10 10/08/24 15:10 Temperature 97.0 F L 96.7 F L Pulse Rate 74 76 68 Respiratory Rate 14 14 14 Blood Pressure 141/62 H 140/58 L 141/49 H Pulse Oximetry 100 100 100 Oxygen Delivery Oxygen Flow Rate 10/08/24 20:20 10/08/24 20:34 10/08/24 22:52 Temperature 98.2 F 98.2 F Pulse Rate 74 74 Respiratory Rate 16 16 Blood Pressure 127/56 L 127/56 L Pulse Oximetry 100 100 Oxygen Delivery Room Air Oxygen Flow Rate 10/09/24 02:52 Temperature 97.0 F L Pulse Rate 90 Respiratory Rate 16 Blood Pressure 132/59 L Pulse Oximetry 95 Oxygen Delivery Oxygen Flow Rate Intake/Output Intake/Output: Intake & Output 10/06/24 10/07/24 10/08/24 10/09/24 23:59 23:59 23:59 23:59 Intake Total 800 Balance 800 Meds/Results Medications: Active Medications Generic Name Dose Route Start Last Admin Trade Name Freq PRN Reason Stop Dose Admin Acetaminophen 650 mg 10/08/24 13:00 10/09/24 05:13 Acetaminophen 325 Mg Tablet PO 650 mg Q4H NINA Administration Apixaban 2.5 mg 10/09/24 09:00 Apixaban 2.5 Mg Tablet PO 10/20/24 21:01 Q12HR [facility] Celecoxib 100 mg 10/09/24 08:00 Celecoxib 100 Mg Capsule PO DAILY@0800 [facility] Diphenhydramine HCl 25 mg 10/08/24 13:07 Diphenhydramine Hcl Inj 50 Mg/Ml Vial IV PUSH Q6H PRN Itching Doxycycline Hyclate 100 mg 10/09/24 09:00 Doxycycline Hyclate 100 Mg Tablet PO Q12HR [facility] Famotidine 20 mg 10/08/24 21:00 10/08/24 20:24 Famotidine 20 Mg Tablet PO 20 mg Q12HR [facility] Administration Vancomycin HCl 1,000 mg in 250 mls @ 250 mls/hr 10/08/24 19:00 10/09/24 06:32 Vancomycin 1,000 Mg/Ns 250 Ml IVPB 10/09/24 07:59 250 mls/hr Q12H NINA Administration Morphine Sulfate 2 mg 10/08/24 13:07 Morphine Sulfate (*Crx) 2 Mg/Ml Inj IV PUSH Q2H PRN Breakthrough Pain Rated 4-6 or NPO Naloxone HCl 0.1 mg 10/08/24 13:07 Naloxone Hcl 0.4 Mg/Ml Vial IV PUSH Q2M PRN Opiate Reversal Ondansetron HCl 4 mg 10/08/24 13:07 10/08/24 14:57 Ondansetron Inj 4 Mg/2 Ml Vial IV PUSH 4 mg Q4H PRN Administration Nausea And Vomiting Oxycodone HCl 5 mg 10/08/24 13:00 10/09/24 05:13 Oxycodone Hcl (*Crx) 5 Mg Tab Ir PO Not Given Q4H [facility] Oxycodone HCl 5 mg 10/08/24 13:07 Oxycodone Hcl (*Crx) 5 Mg Tab Ir PO Q4H PRN Pain Rated 7-10 Polyethylene Glycol 17 gm 10/09/24 09:00 Polyethylene Glycol 3350 17 Gm Powd.Pack PO QAM [facility] Pravastatin Sodium 10 mg 10/09/24 09:00 Pravastatin Sodium 10 Mg Tablet BY MOUTH QAM [facility] Pregabalin 75 mg 10/08/24 17:00 10/08/24 17:24 Pregabalin (*Crx) 75 Mg Capsule PO 75 mg BID NINA Administration Senna/Docusate Sodium 2 tab 10/08/24 17:00 10/08/24 17:23 Senna/Docusate Sodium Tablet PO 2 tab BID NINA Administration Radiology Results: ITS Impressions Knee X-Ray 10/08/24 12:16 Impression: Status post total knee replacement, without evidence of hardware complication. Labs Labs: Laboratory Results - last 24 hr 10/09/24 05:50 WBC 12.8 H RBC 3.28 L Hgb 9.3 L Hct 30.4 L MCV 92.7 MCH 28.4 MCHC 30.6 L RDW 14.0 Plt Count 204 MPV 11.9 H Immature Gran % (Auto) 0.8 H Neut % (Auto) 89.6 H Lymph % (Auto) 4.9 L [place] % (Auto) 4.5 Eos % (Auto) 0.0 Baso % (Auto) 0.2 Lymph # (Auto) 0.62 L [place] # (Auto) 0.6 Eos # (Auto) 0.0 Baso # (Auto) 0.0 Abs Immat Gran (auto) 0.10 H Absolute Neuts (auto) 11.5 H Absolute Nucleated RBC 0.000 Nucleated RBC % 0.0 Sodium 137 Potassium 4.7 Chloride 103 Carbon Dioxide 25 Anion Gap 9 BUN 16 Creatinine 1.12 H Estim Creat Clear Calc Not Reportable Estimated GFR 48 L Glucose 124 H Calcium 8.8 Magnesium 1.9 Total Bilirubin 0.3 Direct Bilirubin 0.0 AST 23 ALT 11 Alkaline Phosphatase 83 Total Protein 6.0 L Albumin 3.7
[2024-10-09 08:00] VITALS: BP 135/62; PULSE 64; RESP 20; TEMP 36.6; O2SAT 99
--- NOTE | 2024-10-09 08:06 | P.CONIM_ITS ---
Assessment and Plan Assessment and plan (1) Degenerative joint disease of right knee: Code(s): M17.11 - Unilateral primary osteoarthritis, right knee Status: Acute Assessment and Plan: Postoperative day 1 status post right total knee arthroplasty. Wound care, pain control, and DVT prophylaxis deferred to primary service. PT/OT consulted. L (2) Hypertension: Code(s): I10 - Essential (primary) hypertension Status: Acute Assessment and Plan: Blood pressures were reviewed and they have been running in the 140 systolic postoperatively. Resume lisinopril 10 mg tomorrow and continue to monitor closely. L (3) Hyperlipidemia: Code(s): E78.5 - Hyperlipidemia, unspecified Status: Acute Assessment and Plan: Continue pravastatin and check LFTs in a.m. L (4) Peripheral neuropathy: Code(s): G62.9 - Polyneuropathy, unspecified Status: Acute Assessment and Plan: Continue pregabalin 75 mg b.i.d.. L Plan Thank you for allowing us to participate in this patient's care. Please do not hesitate to contact us with any questions. HPI Date of Consult Consult date: 10/09/24 Requesting Physician: Herbert Yuen PA-C Primary Care Provider: Clemencia Wiggins APRN Consult Narrative Narrative: This is a very pleasant 74-year-old female with degenerative joint disease, peripheral neuropathy, hypertension, hyperlipidemia, and a transient episode of atrial fibrillation during a previous surgery whom the hospitalist service has been consulted for help managing her medical conditions postoperatively. She presented today for elective right total knee arthroplasty due to ongoing pain despite conservative outpatient treatment. Surgery was performed under general anesthesia with no immediate complications documented an estimated blood loss of 250 mL. She believes that she got a regional block and she has had minimal discomfort which has been manageable with acetaminophen. She has been up to the chair into the bathroom with a walker without issue. She had some nausea earlier on but that has since passed and she was able to eat dinner. No fever, chills, sweats, chest pain, shortness of breath, or vomiting. She also denies paresthesias, skin color, and temperature changes distal to the surgical site. Regarding her chronic medical conditions, she reports that they are well controlled on home medication. On discharge she will be going home and her will be helping take care of her. No personal or family history of venous thromboembolism. On 10/09/2024, patient observed in bed at time of examination. She denies any chest pain, shortness of breath, n/v, abdominal pain. Slight right knee pain at surgical site. No signs of systemic infection. Dressing is dry and intact. Afebrile with unremarkable blood work. Started on Eliquis this AM. Orthopedic primary provider. Pt otherwise stable . Plan to continue working with PT/OT until discharge. Review of Systems 2 Review of Systems: 12 systems were reviewed and are negativ e except for as per HPI. [facility] Past Medical History Medical History (Updated 10/08/24 @ 17:07 by Nika Mina PA-C) Arthritis Peripheral neuropathy Post-menopausal Osteopenia Multinodular goiter Hyperlipidemia Hypertension Transient atrial fibrillation at the time of left knee replacement Surgical History Surgical History (Updated 10/09/24 @ 07:38 by HAY Acevedo) History of arthroplasty of right knee (10/08/24) History of arthroplasty of left knee with revision History of spinal fusion History of rotator cuff surgery History of hysterectomy History of carpal tunnel release History of neck surgery History of tubal ligation Family History Family History Father Family history of malignant neoplasm Mother Family history of atrial fibrillation Other History of atrial fibrillation Social History Social History (Updated 10/08/24 @ 17:07 by Nika Mina PA-C) Social History: Surrogate medical decision maker: Mitchell Perdomo, spouse. Code status: Full code. Smoking status: Never smoker Second hand tobacco smoke exposure: Yes Alcohol intake: never Substance use: never Substance use type: does not use Do You Feel Safe in your Home?: Yes Lack of Transportation: No Lack of Food: Never True Current Housing: I Have Housing Concerned About Future Housing: No Difficulty Paying Gas/Electric Bills: No Difficulty Paying for Meds: No Currently Unemployed: No Education: Associate Degree Difficulty w/ Childcare or Family Care: No Living arrangements: with family Occupation/Education: retired Spiritual care concerns: No Agree to blood products: No Meds Home Medications and Allergies Home Medications ?Medication ?Instructions ?Recorded ?Confirmed ?Type lisinopril 10 mg tablet See Rx Instructions .Route 06/03/24 09/21/24 Rx .COMPLEX #90 tabs pravastatin 10 mg tablet See Rx Instructions .Route 06/03/24 09/21/24 Rx .COMPLEX #90 tabs pregabalin 75 mg capsule (Lyrica) 75 mg PO BID #180 caps 06/03/24 09/21/24 Rx acetaminophen 325 mg tablet 650 mg (2 x 325 mg) PO Q4H #90 tabs 10/09/24 Rx apixaban 2.5 mg tablet (Eliquis) 2.5 mg PO Q12HR #28 tabs 10/09/24 Rx celecoxib 100 mg capsule (Celebrex) 100 mg PO DAILY@0800 #60 caps 10/09/24 Rx doxycycline hyclate 100 mg tablet 100 mg PO Q12HR #14 tabs 10/09/24 Rx oxycodone 5 mg tablet 5 mg PO Q4H PRN pain #30 tabs 10/09/24 Rx polyethylene glycol 3350 17 gram 17 g PO QAM #30 ea 10/09/24 Rx oral powder packet (Miralax) sennosides 8.6 mg-docusate sodium 2 tab PO BID #60 tabs 10/09/24 Rx 50 mg tablet (Senokot-S) Allergies Allergy/AdvReac Type Severity Reaction Status Date / Time cefuroxime AdvReac Mild Ringing in Verified 10/08/24 07:17 ears and loose stools tramadol AdvReac Unknown difficulty Verified 10/08/24 07:17 breathing Vital Signs Vital Signs - 24 hr 10/08/24 11:20 10/08/24 11:35 10/08/24 11:50 Temperature 98.9 F Pulse Rate 81 75 78 Respiratory Rate 14 19 16 Blood Pressure 115/51 L 110/53 L 118/61 Pulse Oximetry 99 99 99 Oxygen Delivery Simple Face Mask Simple Face Mask Simple Face Mask Oxygen Flow Rate 10 10 10 10/08/24 12:05 10/08/24 12:20 10/08/24 12:35 Temperature Pulse Rate 84 74 73 Respiratory Rate 15 17 20 Blood Pressure 128/62 125/77 122/62 Pulse Oximetry 94 98 98 Oxygen Delivery Room Air Room Air Nasal Cannula Oxygen Flow Rate 2 10/08/24 12:50 10/08/24 13:05 10/08/24 13:25 Temperature Pulse Rate 82 83 73 Respiratory Rate 18 15 14 Blood Pressure 126/56 L 134/64 141/63 H Pulse Oximetry 98 98 97 Oxygen Delivery Nasal Cannula Nasal Cannula Oxygen Flow Rate 2 2 10/08/24 13:40 10/08/24 14:10 10/08/24 15:10 Temperature 97.0 F L 96.7 F L Pulse Rate 74 76 68 Respiratory Rate 14 14 14 Blood Pressure 141/62 H 140/58 L 141/49 H Pulse Oximetry 100 100 100 Oxygen Delivery Oxygen Flow Rate 10/08/24 20:20 10/08/24 20:34 10/08/24 22:52 Temperature 98.2 F 98.2 F Pulse Rate 74 74 Respiratory Rate 16 16 Blood Pressure 127/56 L 127/56 L Pulse Oximetry 100 100 Oxygen Delivery Room Air Oxygen Flow Rate 10/09/24 02:52 Temperature 97.0 F L Pulse Rate 90 Respiratory Rate 16 Blood Pressure 132/59 L Pulse Oximetry 95 Oxygen Delivery Oxygen Flow Rate Exam 2 Narrative: General: Well-developed, nontoxic-appearing female sitting up in bed. She is in good spirits. Weight: 69 kg. BMI: 32.9. HEENT: Wearing corrective lenses. PERRL, EOMI. Sclera anicteric. Oral mucosa moist. Neck: Supple. Respiratory: Lungs are clear to auscultation bilaterally. Cardiovascular: Regular rate and rhythm with S1-S2. Gastrointestinal: Abdomen is soft, nontender, and nondistended with positive bowel sounds. Skin: Warm and dry. No rash or lesions on limited exam. Extremities: No cyanosis, clubbing, or edema. Radial and pedal pulses intact. Musculoskeletal: Right knee dressing is clean, dry, and intact. She is neurovascularly intact distal to the surgical site. Neurological: Alert. Cranial nerves 2-12 grossly intact. No gross focal deficits to casual conversation. Psychiatric: Pleasant and cooperative with normal mood and affect. Judgment and insight intact. Results Labs 10/09/24 05:50 10/09/24 05:50 Labs: Short CBC 10/09/24 Range/Units 05:50 WBC 12.8 H (4.5-10.0) K/mm3 Hgb 9.3 L (12.0-15.0) g/dL Hct 30.4 L (37.0-47.0) % Plt Count 204 (150-375) k/mm3 BMP 10/09/24 05:50 Sodium 137 Potassium 4.7 Chloride 103 Carbon Dioxide 25 BUN 16 Creatinine 1.12 H Glucose 124 H Calcium 8.8 Liver Function 10/09/24 Range/Units 05:50 Total Bilirubin 0.3 (0.2-1.3) mg/dL Direct Bilirubin 0.0 (0-0.3) mg/dL AST 23 (14-36) U/L ALT 11 (6-35) U/L Alkaline Phosphatase 83 (38-126) U/L Albumin 3.7 (3.5-5.1) g/dL Quality VTE Prophylaxis VTE prophylaxis: pharmacologic ordered
[2024-10-09] MEDS: APIXABAN 2.5 MG TABLET PO (08:38)
[2024-10-09] MEDS: PRAVASTATIN SODIUM 10 MG TABLET BY MOUTH (08:38)
[2024-10-09] MEDS: PREGABALIN (*CRX) 75 MG CAPSULE PO (08:38)
[2024-10-09] MEDS: CELECOXIB 100 MG CAPSULE PO (08:38)
[2024-10-09] MEDS: SENNA/DOCUSATE SODIUM TABLET 2 TAB PO (08:38)
[2024-10-09] MEDS: DOXYCYCLINE HYCLATE 100 MG TABLET PO (08:39)
== END 2024-10-09 10:40 | disposition home or self-care (01) ==
LOC: ANHSURGERY 05:45 → ANH3MEDSUR 13:22
PROVIDERS: Orthopaedic Surgery; Physician Assistant; Physician Assistant Surgical; PCP Nurse Practitioner Family; Visit Provider Physician Assistant
PROC: (CPT 27447; principal; 2024-10-08 07:30)
DX: M17.11 Unilateral primary osteoarthritis, right knee (principal); M22.41 Chondromalacia patellae, right knee; I10 Essential (primary) hypertension; E78.5 Hyperlipidemia, unspecified; G62.9 Polyneuropathy, unspecified; I48.91 Unspecified atrial fibrillation; E66.9 Obesity, unspecified; Z68.33 Body mass index [BMI] 33.0-33.9, adult; Z79.891 Long term (current) use of opiate analgesic; Z98.890 Other specified postprocedural states; Z98.1 Arthrodesis status; Z98.51 Tubal ligation status; Z80.9 Family history of malignant neoplasm, unspecified; Z82.49 Family history of ischemic heart disease and other diseases of the circulatory system
CPT/HCPCS: 27447; 36415; 73560; 80048; 80076; 83735; 85025; 86850; 86900; 86901; 97110; 97161; 97165; 97530; 97535; A9270; C1713; C1776; J0171; J0690; J1100; J1171; J1885; J2003; J2250; J2405; J2704; J2795; J3010; J3370; J7030; J7120

== ENCOUNTER 2024-11-23 10:59 | Outpatient (CLI) | payer MEDICARE, SELFPAY ==
--- NOTE | ~2024-11-23 | US_ITS ---
Thyroid ultrasound. Clinical History: Multinodular goiter Findings: Real-time sonography of the thyroid gland was performed. The right lobe measures 4.6 x 2.1 x 2.0 cm. The left lobe measures 5.0 x 2.6 x 2.5 cm. The isthmus is 3 mm in AP diameter. There is a 1.8 x 1.3 x 1.3 cm heterogeneous solid nodule at the right upper pole. There is a probable 2.9 x 2.3 x 1.9 cm predominantly solid isoechoic nodule at the left midpole. Ther e is a probable 1.4 cm mixed solid and cystic nodule at the left lower pole. Impression: Bilateral thyroid nodules, as detailed above. FNA of the 2.9 cm left thyroid nodule and 1.8 cm right thyroid nodule should be considered to establish a histologic diagnosis.. Reviewed, dictated and finalized at [facility]. Impression: Bilateral thyroid nodules, as detailed above. FNA of the 2.9 cm left thyroid no dule and 1.8 cm right thyroid nodule should be considered to establish a histol ogic diagnosis..
== END 2024-11-23 11:00 | disposition home or self-care (01) ==
LOC: GOSHIMG 10:59
PROVIDERS: PCP Nurse Practitioner Family; Visit Provider Nurse Practitioner Family
DX: E04.2 Nontoxic multinodular goiter (principal)
CPT/HCPCS: 76536